=== PATIENT | female | born 1955 | race Caucasian/White ===

== ENCOUNTER 2024-02-05 12:43 | Emergency (ER) | payer OTHER, MEDICAID ==
[~2024-02-05] VITALS: Ht 167.6 cm; Wt 90.9 kg
[2024-02-05 15:23] VITALS: BP 134/84; PULSE 85; TEMP 98.6; O2SAT 98
[2024-02-05 15:28] VITALS: RESP 15
[2024-02-05] MEDS: HYDROcodone/acetaminophen 5mg/325mg tablet PO ONE (15:28)
[2024-02-05] MEDS: ketorolac trometh 15mg/ml vial 15 MG/ML ML IM ONE (15:28)
== END 2024-02-05 18:43 | disposition home or self-care (01) ==
LOC: ER 12:43
DX: S93.692A Other sprain of left foot, initial encounter (principal); X50.1XXA Overexertion from prolonged static or awkward postures, initial encounter; Y93.89 Activity, other specified; Y92.89 Other specified places as the place of occurrence of the external cause; Y99.8 Other external cause status
CPT/HCPCS: 73630; 96372; 99283; J1885; L4360

== ENCOUNTER 2025-02-16 11:35 | Emergency (ER) | payer OTHER, MEDICAID ==
[~2025-02-16] VITALS: Ht 165.1 cm; Wt 84.0 kg
[2025-02-16 11:38] VITALS: BP 129/75; PULSE 95; RESP 16; O2SAT 95
[2025-02-16] MEDS: sulfamethoxazole/trimethoprim DS (800/160mg) tablet PO ONE (12:26)
[2025-02-16] MEDS ORDERED: SULF1TAB49 PO (12:26)
[2025-02-16] MEDS ORDERED: HYDR-3973 PO (12:26)
[2025-02-16] MEDS ORDERED: MUPI22OI30 TOP (12:26)
--- NOTE | 2025-02-16 12:27 | Physician Documentation ---
History of Present Illness ~ Chief Complaint: Facial Swelling Stated Complaint: SWOLLEN LIP Time Seen by MD: 12:04 OK to notify your PCP?: Yes Source: patient Mode of Arrival: POV Exam Limitations: no limitations HPI 69-year-old female who is here due to lower lip swelling with a few pustules which started about a week ago. She states that her lip is painful and the pain has been getting progressively worse along with the swelling. She states she has never had anything like this before. She does admit that she tried to squeeze the area where she has pustules and that this made her swelling worse. No fever, chills, trauma to the area. No pre arrival treatment. Patient states she does have diabetes but that it is very well controlled and she is only on 500 mg of metformin for it. Medication Reconciliation Allergies: Coded Allergies: No Known Allergies (Unverified , 02/05/24) Past Medical History Past Medical History: Diabetes Past Surgical History: noncontributory Drug Use: none Review of Systems All Other Systems at this time: Reviewed and Negative Physical Exam Vital Signs: Temperature: 98.1, Source: Oral, Heart Rate: 95, Respiratory Rate: 16, BP: 129/75, Pulse Oximetry: 95, Weight: 84.000 Oxygen Flow Rate: 0 Physical Exam General Appearance: Alert, WD/WN. NAD. HEENT: NCAT, PERRL, EOMI. Edematous lower lip with three side by side pustules with overlying crusts. no fluctuance. edema is mostly right lower lip extends to mid lower lip, does not involve the entire lower lip. buccal mucosa on inside of lip edematous, no edema of gingiva. Swelling does not extend into chin or cheek. Neck: Supple, trachea midline. No cervical lad. Cardiovascular: RRR. No m/r/g. Lungs: CTAB. Breathing unlabored Extremities: Normal inspection. No edema. Skin: Warm/dry, normal color Neurological: Alert and oriented x4, normal gait. Psychiatric: Affect congruent with mood. Progress Results/Orders Results/Orders Orders - ISSAC COON Methylprednisolone Sod Succ (Solumedrol (02/16/25 12:15) Mupirocin Ointment (Bactroban Ointment) (02/16/25 12:13) Sulfamethox/Trimetho. Ds Tab (Septra Ds (02/16/25 12:15) Vital Signs 02/16/25 11:38 Temp 98.1 Pulse 95 Resp 16 B/P (MAP) 129/75 Pulse Ox 95 O2 Flow Rate 0 Medical Decision Making Additional Comment There is no area of fluctuance or any area that appeared to be drainable on exam. Due to the degree of swelling, I felt that that the benefits of giving a single dosage of a steroid along with a course of antibiotics outweighed the risks of a steroid. Herpes simplex virus, impetigo, abscess, phlegmon are all in the differential. Departure Time of Disposition: 12:24 Disposition: 01 HOME / SELF CARE / HOMELESS Impression: Primary Impression: Lip abscess Condition: Stable Discharge Instructions: Abscess, Care After Additional Instructions: antibiotic and topical antibiotic sent to pharmacy this needs to be rececked in about 48hours if fever, increasing pain, worsening of swelling return to er Referrals: NO PRIMARY CARE PROVIDER (PCP) Prescriptions Hydrocodone Bit/Acetaminophen (Hydrocodone-Apap 10-325 Tablet) 10mg/325mg Tablet 1 TAB PO QID PRN PRN for pain for 5 Days, #20 TAB dx: abscess K12.2 Prov: ISSAC COON 02/16/25 Mupirocin* (Bactroban*) 22 Gm Tube 1 APPLIC TOP Q8H for 7 Days, #22 GM apply to affected area(s) Prov: ISSAC COON 02/16/25 Sulfamethoxazole/Trimethoprim (Bactrim Ds Tablet) 800 Mg-160 Mg Tablet 1 TAB PO Q12H for 10 Days, #20 TAB Prov: ISSAC COON 02/16/25 Education Educated: Patient Educated regarding: diagnosis, treatment, need for follow up Signature Scribe Signature: x Attestation: ISSAC Amaya Feb 16, 2025 12:27
[2025-02-16 12:31] VITALS: TEMP 98.1
== END 2025-02-16 12:33 | disposition home or self-care (01) ==
LOC: ER 11:36
DX: K13.0 Diseases of lips (principal); R22.0 Localized swelling, mass and lump, head; E11.9 Type 2 diabetes mellitus without complications
CPT/HCPCS: 96372; 99283; J2919